=== PATIENT | female | born 1975 | race Caucasian/White ===

== ENCOUNTER 2020-08-16 13:33 | Emergency (ER) | payer BC, SELFPAY ==
--- NOTE | ~2020-08-16 | CT_ITS ---
EXAMINATION: CT abdomen pelvis wo con DATE: 08/16/2020 15:21 INDICATION: Right flank pain. Dysuria. Nausea and vomiting. TECHNIQUE: Computed tomography (CT) of the abdomen and pelvis was performed without intravenous contr ast. Automated exposure control and iterative reconstruction technique were employed. The dose-length product was 584.02 mGy-cm. COMPARISON: CT abdomen and pelvis 11/23/2018, 07/04/2018. FINDINGS: The visualized portions of the lung bases are clear without pneumonia or pleural effusion. The heart size is normal. No pericardial effusion. There is diffuse hepatic steatosis. There are link knitting machine operator luda ill-defined masses in right hepatic lobe, likely benign. The spleen, pancreas, gallbladder, adren al glands, and left kidney are normal. There is mild right hydronephrosis and hydroureter. There is a 2 mm stone at right ureterovesicular junction. There is diverticulosis of the colon without evidence of diverticulitis. There are no dilated loops of bowel. The appendix is normal. There is an infraumb ilical ventral hernia containing nonobstructed small bowel. There are no pathologically enlarged lymp h nodes. There is no free intraperitoneal fluid. The bones are unremarkable. IMPRESSION: 1. 2 mm stone at right ureterovesicular junction with mild right hydronephrosis and hydroureter. 2. Infraumbilical ventral hernia containing nonobstructed small bowel. Reviewed, dictated and finalized at location A.
[2020-08-16 13:34] VITALS: BP 167/92; PULSE 88; RESP 18; TEMP 37.4; O2SAT 98
[2020-08-16 13:53] LABS: Basophils Percent Auto 0.4 % (0.2-1.2); Eosinophils Absolute Auto 0.1 K/mm3 (0-0.3); Hemoglobin 12.1 g/dL (12.0-15.0); Immature Granulocyte Absolute 0.04 K/mm3 (0.00-0.031); Immature Granulocyte Percent A 0.5 % (0-0.5); Lymphocytes Absolute Auto 2.49 K/mm3 (0.9-3.2); Lymphocytes Percent Auto 30.1 % (18.3-44.2); Mean Corpuscular HGB Conc 30.3 g/dl (32-36); Mean Corpuscular Hemoglobin 23.2 pg (26-34); Mean Corpuscular Volume 76.8 fl (80-100); Mean Platelet Volume 8.8 fl (7.4-10.4); Monocytes Absolute Auto 0.5 K/mm3 (0.1-0.6); Monocytes Percent Auto 5.9 % (2.6-8.5); Neutrophils Absolute Auto 5.1 K/mm3 (1.3-6.7); Neutrophils Percent Auto 62.1 % (45.5-73.1); Platelet Count Result 444 k/mm3 (150-375); Red Blood Count 5.21 M/mm3 (4.2-5.4); Red Cell Distribution Width 16.3 % (11.5-14.5); White Blood Count 8.3 K/mm3 (4.5-10.0)
[2020-08-16 13:59] LABS: Anion Gap 11 mmol/L (8-16); Blood Urea Nitrogen 12 mg/dL (7-17); Calcium 9.4 mg/dL (8.4-10.2); Carbon Dioxide 23 mmol/L (22-30); Chloride 104 mmol/L (98-107); Estimated CRCL calculation 101 ml/min; Estimated Glomerular Filt Rate > 60; Glucose 98 mg/dL (65-105); Potassium 4.5 mmol/L (3.4-5.0); Sodium 138 mmol/L (137-145)
[2020-08-16 14:06] LABS: Add Urine Microscopic? YES; Appearance Urine Clear (Clear); Bilirubin Urine Negative (Negative); Blood Urine 2+ (Negative); Color Urine Yellow (Yellow); Glucose Urine UA Negative (Negative); Ketones Urine Negative (Negative); Leukocyte Esterase Ur Trace LEU/UL (Negative); Mucus Urine Rare /lpf; Nitrate Urine Negative (Negative); Protein Urine Negative (Negative); Specific Grav Ur 1.026 (1.001-1.035); Squamous Epithelial Cell Urine Few /hpf (Few); Urobilinogen Urine Negative mg/dL (<2.0); WBC Urine 0-3 /hpf
[2020-08-16] MEDS: ONDANSETRON INJ 4 MG/2 ML VIAL IV PUSH ×2 (14:44→15:47)
[2020-08-16] MEDS: MORPHINE SULFATE (*CRX) 4 MG/ML INJ IV PUSH (14:44)
[2020-08-16] MEDS: SODIUM CHLORIDE 0.9% IV 1,000 ML 999 ML IV CONT (14:44)
[2020-08-16 14:51] VITALS: BP 154/83; PULSE 79; RESP 18; TEMP 36.4; O2SAT 99
--- NOTE | 2020-08-16 14:53 | ED.GENADULT ---
HPI - General Adult General Chief complaint: Abdominal Pain Stated complaint: kidney stone Time Seen by Provider: 08/16/20 13:47 Source: patient and RN notes reviewed Mode of arrival: ambulatory Limitations: no limitations History of Present Illness HPI narrative: Patient is a 44-year-old female who presents with acute onset of right flank pain took Tylenol and Flomax with minimal improvement notes history of kidney stones in the past on arrival appears uncomfortable but not distressed patient has not been seen for this complaint presents per private vehicle pain wraps around the right flank Related Data Home Medications Medication Instructions Recorded Confirmed aspirin [Aspir-81] 12/08/18 atorvastatin 20 mg PO DAILY 12/08/18 12/08/18 omeprazole 40 mg PO DAILY 12/08/18 12/08/18 Allergies Allergy/AdvReac Type Severity Reaction Status Date / Time diphenhydramine Allergy Mild SWELLING Verified 08/16/20 14:53 Review of Systems Review of Systems: All systems reviewed & are unremarkable except as noted in HPI and below PMFSH Past Medical History Medical History (Updated 08/16/20 @ 16:01 by García Carrillo PA-C) GERD (gastroesophageal reflux disease) Hyperlipidemia Renal stones Surgical History Surgical History (Updated 08/16/20 @ 14:55 by García Carrillo PA-C) H/O lithotripsy Social History Social History Gender identity (if verbalized by the patient): Female Exam Narrative: Exam Narrative: GENERAL: Well-appearing, well-nourished, uncomfortable and in no acute distress. HEAD: Normocephalic, atraumatic. EYES: PERRLA and EOMI. ENT: Nares clear, no rhinorrhea or epistaxis. Mucous membranes moist. CHEST: Clear to auscultation. No respiratory distress. ABDOMEN: Soft, nontender, nondistended, normal active bowel sounds. EXTREMITIES: Normal range of motion. No edema. SKIN: Warm, dry, no rash. NEURO: No focal deficits. Alert and oriented x3. PSYCH: Normal mood and affect. Course Course Emergency Course: Patient found to have kidney stone 2 mm will be discharged with outpatient follow-up felt appropriate for outpatient follow-up with urology no other concerning findings patient agrees with this plan hydrated medicated emergency department with improvement Vital Signs Vital signs: Vital Signs Temperature 99.3 F 07/02/21 13:34 Pulse Rate 88 08/16/20 13:34 Respiratory Rate 18 08/16/20 13:34 Blood Pressure 167/92 H 08/16/20 13:34 Pulse Oximetry 98 08/16/20 13:34 Temperature 97.5 F L 08/16/20 14:51 Pulse Rate 79 08/16/20 14:51 Respiratory Rate 18 08/16/20 14:51 Blood Pressure 154/83 H 08/16/20 14:51 Pulse Oximetry 99 08/16/20 14:51 Medical Decision Making MDM Narrative Medical decision making narrative: Patient with urolithiasis presented to the emergency department with flank pain afebrile nontoxic-appearing no distress felt appropriate for outpatient reevaluation Vital Signs Vital Signs: Vital Signs Temperature 99.3 F 08/16/20 13:34 Pulse Rate 88 08/16/20 13:34 Respiratory Rate 18 08/16/20 13:34 Blood Pressure 167/92 H 08/16/20 13:34 Pulse Oximetry 98 08/16/20 13:34 Temperature 97.5 F L 08/16/20 14:51 Pulse Rate 79 08/16/20 14:51 Respiratory Rate 18 08/16/20 14:51 Blood Pressure 154/83 H 08/16/20 14:51 Pulse Oximetry 99 08/16/20 14:51 Lab Data Result diagrams: 08/16/20 13:40 08/16/20 13:40 Labs: Lab Results 08/16/20 08/16/20 08/16/20 Range/Units 13:40 13:40 13:44 WBC 8.3 (4.5-10.0) K/mm3 RBC 5.21 (4.2-5.4) M/mm3 Hgb 12.1 (12.0-15.0) g/dL Hct 40.0 (37.0-47.0) % MCV 76.8 L (80-100) fl MCH 23.2 L (26-34) pg MCHC 30.3 L (32-36) g/dl RDW 16.3 H (11.5-14.5) % Plt Count 444 H (150-375) k/mm3 MPV 8.8 (7.4-10.4) fl Immature Gran % (Auto) 0.5 (0-0.5) % Neut % (Auto) 62.1 (45.
[2020-08-16] MEDS: KETOROLAC 30 MG/ML VIAL (*BKC) IV PUSH (15:47)
[2020-08-16 16:22] VITALS: BP 148/77; PULSE 76; RESP 18; O2SAT 97
== END 2020-08-16 16:24 | disposition home or self-care (01) ==
PROVIDERS: Emergency Medicine; Emergency Provider Emergency Medicine; PCP Family Medicine Sports Medicine
DX: N13.2 Hydronephrosis with renal and ureteral calculous obstruction (principal); K21.9 Gastro-esophageal reflux disease without esophagitis; E78.5 Hyperlipidemia, unspecified; Z87.442 Personal history of urinary calculi; K43.9 Ventral hernia without obstruction or gangrene
CPT/HCPCS: 36415; 74176; 80048; 81001; 81025; 85025; 96361; 96374; 96375; 96376; 99284; J1885; J2270; J2405; J7030

== ENCOUNTER 2020-11-28 12:26 | Emergency (ER) | payer BC, SELFPAY ==
[2020-11-28 12:35] VITALS: BP 147/80; PULSE 119; RESP 20; TEMP 39.4; O2SAT 98
--- NOTE | 2020-11-28 12:57 | ED.URI ---
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 After being exposed to daughter with Covid, patient notes shorter, couple day history of sore throat followed by myalgias with headache, and scant cough. She was tested negative for Covid at the school and comes here for continued symptoms. No earache, loss of taste/smell, CP, wheezing, S OB, vomiting/diarrhea, rash. Symptoms are mild, worse with swallowing; vital signs remarkable for temperature 102.9, pulse 119 and [id number] testing for Covid is positive Related Data Home Medications Medication Instructions Recorded Confirmed aspirin [Aspir-81] 81 mg PO DAILY 12/08/18 11/28/20 atorvastatin 20 mg PO DAILY 12/08/18 11/28/20 omeprazole 40 mg PO DAILY 12/08/18 11/28/20 Allergies Allergy/AdvReac Type Severity Reaction Status Date / Time diphenhydramine Allergy Intermediate SWELLING Verified 11/28/20 12:48 Review of Systems Review of Systems: The patient has been informed that they may have pre-hypertension or Hypertension based on a BP reading in the department. I recommend that the patient call the primary care provider listed on their discharge instructions or a physician of their choice this week to arrange follow up for further evaluation of possible pre-hypertension or Hypertension General/Constitutional: No weight loss, POSSIBLE fever Eyes: N0: Redness,discharge Ears/Nose/Throat: No: Epistaxis,ear discharge Respiratory: Denies: Hemoptysis Gastrointestinal: No Vomiting, Bleeding-rectal Skin: No Lumps, eruption Neurologic: No Focal Weakness,Sz Hematologic: Denies: Petechiae/Purpura Psychiatric: No: Suicida ideationl All Other Systems: Reviewed and Negative [facility] Past Medical History Medical History (Updated 11/28/20 @ 13:01 by Darian Encarnacion MD) GERD (gastroesophageal reflux disease) Hyperlipidemia Renal stones Surgical History Surgical History (Updated 08/16/20 @ 14:55 by García Carrillo PA-C) H/O lithotripsy Social History Social History Gender identity (if verbalized by the patient): Female Comments At time of signature, agree with nursing past medical, surgical, social and family history. There is no relevant family history pertinent to the presenting complaint Exam Narrative: General Appearance: Well appearing, Well nourished EYE: PERRLA, Conjunctiva clear Nose: Rhinorrhea, Mucousal erythema Mouth/Throat: MM moist, Uvula midline, Pharyngeal erythema Neck: Supple, No adenopathy Respiratory: No respiratory distress, airway patent Cardiovascular: RRR, No JVD Musculoskeletal: Non tender, Normal strength Skin: Warm, Dry Neurological: A&O x3, CN II-XII intact Psychiatric: Normal mood, Normal affect Course Vital Signs Vital signs: Vital Signs Temperature 102.9 F H 11/28/20 12:35 Pulse Rate 119 H 11/28/20 12:35 Respiratory Rate 20 11/28/20 12:35 Blood Pressure 147/80 H 11/28/20 12:35 Pulse Oximetry 98 11/28/20 12:35 Temperature 102.9 F H 11/28/20 12:35 Pulse Rate 119 H 11/28/20 12:35 Respiratory Rate 20 11/28/20 12:35 Blood Pressure 147/80 H 11/28/20 12:35 Pulse Oximetry 98 11/28/20 12:35 MDM - URI/Sore Throat Lab Data Labs: Lab Results 11/28/20 Range/Units 12:42 POC SARS CoV-2 Ag Positive (Negative) Strep Screen Presumptive Negative *(Reference Range: Negative)* Discharge Plan Discharge Clinical Impression: COVID-19 Patient Disposition: Home, Self-Care Condition: Stable Instructions: COVID-19 (Coronavirus Disease 2019) (ED) Additional Instructions: Take vitami
== END 2020-11-28 13:07 | disposition home or self-care (01) ==
PROVIDERS: Emergency Provider Emergency Medicine; PCP Family Medicine Sports Medicine
DX: J02.9 Acute pharyngitis, unspecified (principal); U07.1 COVID-19; K21.9 Gastro-esophageal reflux disease without esophagitis; E78.5 Hyperlipidemia, unspecified; Z79.82 Long term (current) use of aspirin
CPT/HCPCS: 87081; 87426; 87880; 99213; C9803; G0463

== ENCOUNTER → 2020-12-31 16:52 | Outpatient (CLI) | payer BC, SELFPAY ==
--- NOTE | ~2020-12-31 | MM_ITS ---
EXAMINATION: MM screening [facility] BI w chan HISTORY: Screening mammogram TECHNIQUE: Craniocaudal and mediolateral oblique 3-D tomosynthesis images were obtained and synthetic 2-D images were generated. CAD analysis was submitted and interpreted. COMPARISON: 12/01/2018, 03/07/2018, 11/30/2016 BREAST PARENCHYMAL COMPOSITION: There are scattered areas of fibroglandular density. FINDINGS: There is no evidence of suspicious mass, calcification, or architectural distortion to sugg est malignancy in either breast. There has been no suspicious interval change. IMPRESSION: 1. No mammographic evidence of malignancy. 2. Recommend routine screening mammography in one year. BI-RADS Category 1: Negative Reviewed, dictated and finalized at location A. OCOPYING EQUIPMENT MECHANIC
== END ==
PROVIDERS: Visit Provider Obstetrics & Gynecology
DX: Z12.31 Encounter for screening mammogram for malignant neoplasm of breast (principal)
CPT/HCPCS: 77063; 77067

== ENCOUNTER → 2022-02-10 11:18 | Outpatient (CLI) | payer BC, SELFPAY ==
--- NOTE | ~2022-02-10 | MM_ITS ---
EXAMINATION: MM screening [facility] HISTORY: Screening mammogram TECHNIQUE: Craniocaudal and mediolateral oblique 3-D tomosynthesis images were obtained and synthetic 2-D images were generated. CAD analysis was submitted and interpreted. COMPARISON: No prior mammogram is available for comparison at this institution. BREAST PARENCHYMAL COMPOSITION: FINDINGS: There is no evidence of suspicious mass, calcification, or architectural distortion to sugg est malignancy in either breast. There has been no suspicious interval change. IMPRESSION: 1. No mammographic evidence of malignancy. 2. Recommend routine screening mammography in one year. BI-RADS Category 1: Negative Reviewed, dictated and finalized at location A. REVIEWER
== END ==
PROVIDERS: PCP Family Medicine Sports Medicine; Visit Provider Obstetrics & Gynecology
DX: Z12.31 Encounter for screening mammogram for malignant neoplasm of breast (principal)
CPT/HCPCS: 77063; 77067

== ENCOUNTER 2022-02-22 08:44 | Emergency (ER) | payer BC, SELFPAY ==
[2022-02-22 09:00] VITALS: BP 132/75; PULSE 113; RESP 18; TEMP 37.2; O2SAT 96
--- NOTE | 2022-02-22 09:24 | ED.GENADULT ---
HPI - General Adult General Chief complaint: Upper Respiratory Infection Stated complaint: sorethroat Time Seen by Provider: 02/22/22 09:24 Source: patient Mode of arrival: ambulatory Limitations: no limitations History of Present Illness HPI narrative: 46-year-old female patient presents to the [facility] with complaints of a sore throat that started 2 days ago. 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 Patient states her symptoms worsen yesterday and last night she noticed she had some cold chills. Patient did not measure her fever. Patient states she has had a slight cough but mostly it is the sore throat that has been bothering her. Patient does complain of headache and nausea. Denies any abdominal pain, vomiting or diarrhea. Denies any chest pain or shortness of breath. Related Data Home Medications Medication Instructions Recorded Confirmed atorvastatin 20 mg tablet 20 mg PO DAILY 12/08/18 02/22/22 omeprazole 40 mg capsule,delayed 40 mg PO DAILY 12/08/18 02/22/22 release aspirin 81 mg tablet,delayed 81 mg PO DAILY 02/22/22 02/22/22 release metoprolol succinate 50 mg 50 mg PO DAILY 02/22/22 02/22/22 tablet,extended release 24 hr Allergies Allergy/AdvReac Type Severity Reaction Status Date / Time diphenhydramine Allergy Intermediate SWELLING Verified 02/22/22 09:08 Review of Systems Review of Systems: CONSTITUTIONAL: Denies fever, chills, or sweats. EYES: Denies visual changes, redness, or discharge. ENT: Denies rhinorrhea, congestion, sore throat, or otalgia. CARDIOVASCULAR: Denies chest pain, palpitations, or edema. RESPIRATORY: Denies cough or dyspnea. GASTROINTESTINAL: Denies abdominal pain, nausea, vomiting, or diarrhea. GENITOURINARY: Denies dysuria or hematuria. SKIN: Denies rash or itching. MUSCULOSKELETAL: Denies back pain, joint pain, or myalgia. NEUROLOGIC: Denies headache, numbness, or weakness. PSYCHIATRIC: Denies anxiety or depression. [facility] Past Medical History Medical History GERD (gastroesophageal reflux disease) Hyperlipidemia Renal stones Surgical History Surgical History H/O lithotripsy Social History Social History Gender identity (if verbalized by the patient): Female Comments At the time of my signature I agree with nursing past medical history, surgical, social, and family history. There is no relevant family history pertinent to the presenting complaint. Exam Narrative: GENERAL: Well-appearing, well-nourished, and in no acute distress. HEAD: Normocephalic, atraumatic. EYES: PERRLA and EOMI. ENT: Nares clear, no rhinorrhea or epistaxis. Mucous membranes moist. Posterior pharynx with erythema and 2+ tonsil enlargement no exudates noted. Bilateral TMs are clear no erythema or foreign bodies the canal NECK: Supple. cervical lymphadenopathy noted on palpation CHEST: Clear to auscultation. No respiratory distress. HEART: Regular rate and rhythm. No murmur heard. Normal peripheral pulses. ABDOMEN: Soft, nontender, nondistended, normal active bowel sounds. EXTREMITIES: Normal range of motion. No edema. SKIN: Warm, dry, no rash. NEURO: No focal deficits. Alert and oriented x3. Course Course Level of Care: Express Care Visit Vital Signs Vital signs: Vital Signs Temperature 37.2 C 02/22/22 09:00 Pulse Rate 113 H 02/22/22 09:00 Respiratory Rate 18 02/22/22 09:00 Blood Pressure 132/75 02/22/22 09:00 Pulse Oximetry 96 02/22/22 09:00 Oxygen Delivery Room Air 02/22/22 09:00 Temperature 37.2 C 02/22/22 09:00 Pulse Rate 113 H 02/22/22 09:00 Respiratory Rate 18 02/22/22 09:00 Blood Pressure 132/75 02/22/22 09:00 Pulse Oximetry 96 02/22/22 09:00 Oxygen Delivery Room Air 02/22/22 09:00 Vital signs reviewed. Medical Decision Making MDM Narrativ
== END 2022-02-22 09:33 | disposition home or self-care (01) ==
PROVIDERS: Emergency Provider Nurse Practitioner Family; PCP Family Medicine Sports Medicine
DX: J02.0 Streptococcal pharyngitis (principal); K21.9 Gastro-esophageal reflux disease without esophagitis; E78.5 Hyperlipidemia, unspecified
CPT/HCPCS: 87880; 99213; G0463

== ENCOUNTER 2023-06-21 16:08 | Outpatient (CLI) | payer BC, SELFPAY ==
--- NOTE | ~2023-06-21 | MM_ITS ---
EXAMINATION: MM screening [facility] HISTORY: Screening mammogram TECHNIQUE: Craniocaudal and mediolateral oblique 3-D tomosynthesis images were obtained and synthetic 2-D images were generated. CAD analysis was submitted and interpreted. COMPARISON: 02/10/2022, 12/31/2020 bilateral screening mammogram examinations BREAST PARENCHYMAL COMPOSITION: There are scattered areas of fibroglandular density. FINDINGS: There is no evidence of suspicious mass, calcification, or architectural distortion to sugg est malignancy in either breast. There has been no suspicious interval change. IMPRESSION: 1. No mammographic evidence of malignancy. 2. Recommend routine screening mammography in one year. BI-RADS Category 1: Negative Reviewed, dictated and finalized at location B.
== END 2023-06-21 16:09 ==
LOC: MICIMG 16:10
PROVIDERS: PCP Obstetrics & Gynecology; Visit Provider Obstetrics & Gynecology
DX: Z12.31 Encounter for screening mammogram for malignant neoplasm of breast (principal)
CPT/HCPCS: 77063; 77067

== ENCOUNTER 2024-11-14 09:57 | Outpatient (CLI) | payer BC, SELFPAY ==
--- NOTE | ~2024-11-14 | MM_ITS ---
EXAMINATION: MM screening [facility] w [facility] HISTORY: Screening TECHNIQUE: Craniocaudal and mediolateral oblique 3-D tomosynthesis images were obtained and synthetic 2-D images were generated. CAD analysis was submitted and interpreted. COMPARISON: Comparison to multiple prior studies sequentially, with oldest reviewed study dated 11/30/2016. BREAST PARENCHYMAL COMPOSITION: There are scattered areas of fibroglandular density. FINDINGS: There is no evidence of suspicious mass, calcification, or architectural distortion to suggest malignancy in either breast. There has been no suspicious interval change. IMPRESSION: 1. No mammographic evidence of malignancy. 2. Recommend routine screening mammography in one year. BI-RADS Category 1: Negative Reviewed, dictated and finalized at location B.
== END 2024-11-14 09:58 | disposition home or self-care (01) ==
LOC: MICIMG 09:59
PROVIDERS: PCP Obstetrics & Gynecology; Visit Provider Obstetrics & Gynecology
DX: Z12.31 Encounter for screening mammogram for malignant neoplasm of breast (principal)
CPT/HCPCS: 77063; 77067